=== PATIENT | male | born 1975 | race African-American/Black ===

== ENCOUNTER 2022-11-27 01:36 | Emergency (ER) | payer OTHER ==
[2022-11-27] MEDS ORDERED: MAGNESIUM SULFATE 1 gm IVPB 1 GM/100 ML BAG IV ONE (02:05)
[2022-11-27] MEDS ORDERED: NA CHLORIDE 0.9% 1,000 ML ONE (02:05)
[2022-11-27 02:28] LABS: Absolute Lymphocytes (CBC) 1.1 K/uL (0.7-4.9); Hematocrit 37.6 % (39.6-49.0); MCV 81.7 fL (80-100)
[2022-11-27 02:45] LABS: ALT/SGPT 32 U/L (16-61); AST/SGOT 21 U/L (15-37); Albumin 3.3 g/dL (3.4-5.0); Alkaline Phosphatase 72 U/L (45-117); BUN Blood Urea Nitrogen 21 mg/dL (7-18); Bicarbonate 31 mEq/L (21-32); Bilirubin Total 0.4 mg/dL (0.2-1.0); Creatine Phosphokinase 197 U/L (39-308); Glomerular Filtration Rate 53 ml/min (=/>90); Glucose Level 301 mg/dL (74-106); Lipase 116 U/L (13-75); Potassium 3.7 mEq/L (3.5-5.1); Protein, Total 6.6 g/dL (6.4-8.2); Sodium Level 138 mEq/L (136-145)
[2022-11-27 03:26] LABS: Bilirubin Direct < 0.1 mg/dL (0-0.2)
[2022-11-27 03:40] LABS: Specific Gravity 1.024 (1.005-1.030); Urine Bacteria None Seen /HPF (<20); Urine Bilirubin NEGATIVE (Negative); Urine Blood Negative (Negative); Urine Clarity Clear (Clear); Urine Color Colorless (Yellow); Urine Glucose 4+ (Over) (Negative); Urine Protein NEGATIVE (Negative); Urine RBC None Seen /HPF (None Seen); Urine Urobilinogen Normal (Normal); Urine pH 5.5 (5.0-7.0)
--- NOTE | 2022-11-27 08:45 | ER ---
Nurse's Notes [facility] Name: Jeremiah Lewis Age: 47 yrs Sex: Male : 1975 Arrival Date: 11/27/2022 Time: 01:41 Bed 5 Private MD: Diagnosis: Hyperglycemia, unspecified;Dehydration Presentation: 11/27 01:42 Chief complaint: EMS states: EMS was called for a pt who was dizzy and having syncopal jb4 episodes. Upon arrival he was orthostatic positive. He did vomit once, was given 4mg of zofran, and started a 1L bolus of NS via 18g to the RAC. Coronavirus screen: At this time, the client does not indicate any symptoms associated with coronavirus-19. Ebola Screen: No symptoms or risks identified at this time. Initial Sepsis Screen: Does the patient meet any 2 criteria? No. Patient's initial sepsis screen is negative. Does the patient have a suspected source of infection? No. Patient's initial sepsis screen is negative. Risk Assessment: Do you want to hurt yourself or someone else? Patient reports no desire to harm self or others. Onset of symptoms was November 27, 2022. Transition of care: patient was not received from another setting of care. 01:42 Method Of Arrival: EMS: [facility] jb4 01:42 Acuity: JOSE 3 jb4 Historical: - Allergies: 01:47 No Known Allergies; jb4 - Home Meds: 01:47 rosuvastatin oral [Active]; Metformin Oral [Active]; Novolog Sub-Q [Active]; jb4 - PMHx: 01:49 DM type 2; jb4 - Immunization history:: Adult Immunizations up to date. - Social history:: Smoking status: Patient reports the use of cigarette tobacco products, smokes one-half pack cigarettes per day, Patient uses alcohol. - Family history:: not pertinent. - Hospitalizations: : No recent hospitalization is reported. Screenin:08 [facility] ED Fall Risk Assessment (Adult) History of falling in the last 3 months, jb4 including since admission Yes- single mechanical fall (1 pt) Confusion or Disorientation No (0 pts) Score/Fall Risk Level 0 - 2 = Low Risk Oriented to surroundings, Maintained a safe environment. Abuse screen: Denies threats or abuse. Nutritional screening: No deficits noted. Tuberculosis screening: No symptoms or risk factors identified. Assessment: 02:08 General: Appears in no apparent distress. comfortable, Behavior is calm, cooperative, jb4 appropriate for age. Pain: Denies pain. Neuro: Level of Consciousness is awake, alert, obeys commands, Oriented to person, place, time, situation. Cardiovascular: Patient's skin is warm and dry. Respiratory: Airway is patent Respiratory effort is even, unlabored, Respiratory pattern is regular, symmetrical. GI: No signs and/or symptoms were reported involving the gastrointestinal system. : No signs and/or symptoms were reported regarding the genitourinary system. EENT: No signs and/or symptoms were reported regarding the EENT system. Derm: Skin is intact, Skin is pink, warm \T\ dry. Musculoskeletal: Circulation, motion, and sensation intact. Range of motion: intact in all extremities. 02:58 Reassessment: Patient and/or family updated on plan of care and expected duration. Pain jb4 level reassessed. Patient is alert, oriented x 3, equal unlabored respirations, skin warm/dry/pink. Patient states feeling better. Patient states symptoms have improved. Vital Signs: 01:42 BP 124 / 71; Pulse 82; Resp 16; Temp 97.7(TE); Pulse Ox 98% on R/A; Weight 82.55 kg jb4 (R); Height 6 ft. 0 in. ; Pain 0/10; 02:15 BP 119 / 81; Pulse 84; Resp 17; Pulse Ox 100% ; jb4 02:45 BP 122 / 77; Pulse 80; Resp 19; Pulse Ox 100% on R/A; jb4 01:42 Body Mass Index 24.68 (82.55 kg, 182.88 cm) jb4 01:42 Pain Scale: Adult jb4 ED Course: 01:41 Patient arrived in ED. jb4 01:41 Twan Perez MD is Attending Physician. rn 01:47 Triage completed. jb4 01:48 Arm band placed on right wrist. jb4 01:57 Subhash Greene, JEAN CLAUDE is Primary Nurse. jb4 02:09 Maintain EMS IV. Dressing intact. Good blood return noted. Site clean \T\ dry. Gauge \T\ heidi 4 site: 18g RAC. 04:10 No provider procedures requiring assistance completed. IV discontinued, intact, vc1 bleeding controlled, No redness/swelling at site. Pressure dressing applied. Administered Medications: 02:07 Drug: NS 0.9% IV 1000 ml Route: IV; Rate: 1000 ml; Site: right antecubital; jb4 02:07 Drug: Magnesium Sulfate IVPB 1 grams Route: IVPB; Infused Over: 1 hrs; Site: right jb4 antecubital; Medication: 04:12 VIS not applicable for this client. vc1 Outcome: 03:55 Discharge ordered by . rn 04:12 Discharged to home ambulatory. vc1 04:12 Condition: good 04:12 Discharge instructions given to patient, Instructed on discharge instructions, follow up and referral plans. medication usage, Demonstrated understanding of instructions, follow-up care. 04:12 Patient left the ED. vc1 Signatures: Twan Perez MD MD rn Bryson, James, RN RN jb4 Christiane Whaley RN RN vc1 Corrections: (The following items were deleted from the chart) 01:50 01:42 BP 124 / 71; Pulse 98bpm; Resp 16bpm; Pulse Ox 82% RA; Temp 97.7F Temporal; 82.55 jb4 kg Reported; Height 6 ft. 0 in.; BMI: 24.6; Pain 0/10, Adult; jb4
--- NOTE | 2022-11-27 08:45 | EDPHYS ---
Physician Documentation [facility] Name: Jeremiah Lewis Age: 47 yrs Sex: Male : 1975 Arrival Date: 11/27/2022 Time: 01:41 Bed 5 Private MD: ED Physician Twan Perez HPI: 11/27 01:48 This 47 yrs old Male presents to ER via EMS with complaints of dizziness, syncope. rn 01:48 The patient presents with dizziness, feeling faint, generalized weakness, rn lightheadedness. Onset: The symptoms/episode began/occurred last night. Modifying factors: The symptoms are alleviated by lying down, the symptoms are aggravated by movement of head, standing up, changing position. Severity of symptoms: At their worst the symptoms were moderate in the emergency department the symptoms have improved. The patient has not experienced similar symptoms in the past. The patient has not recently seen a physician. Pt reports feeling dizzy, fell to ground, significant other reports syncopal episode. No injuries from fall. NO chest pain/sob. No headache. Reports hasn't been taking his diabetic medications lately and glucose in 300s. . Denies sob. . Historical: - Allergies: 01:47 No Known Allergies; jb4 - Home Meds: 01:47 rosuvastatin oral [Active]; Metformin Oral [Active]; Novolog Sub-Q [Active]; jb4 - PMHx: 01:49 DM type 2; jb4 - Immunization history:: Adult Immunizations up to date. - Social history:: Smoking status: Patient reports the use of cigarette tobacco products, smokes one-half pack cigarettes per day, Patient uses alcohol. - Family history:: not pertinent. - Hospitalizations: : No recent hospitalization is reported. ROS: 01:48 Constitutional: Negative for fever, chills, and weight loss, Eyes: Negative for injury, rn pain, redness, and discharge, Neck: Negative for injury, pain, and swelling, Cardiovascular: Negative for chest pain, palpitations, and edema, Respiratory: Negative for shortness of breath, cough, wheezing, and pleuritic chest pain, Abdomen/GI: Negative for abdominal pain, nausea, vomiting, diarrhea, and constipation, : Negative for injury, bleeding, discharge, and swelling, MS/Extremity: Negative for injury and deformity, + muscle cramps in legs Skin: Negative for injury, rash, and discoloration, Neuro: + generalized weakness Exam: 01:48 Constitutional: This is a well developed, well nourished patient who is awake, alert, rn and in no acute distress. Smiling and joking Head/Face: Normocephalic, atraumatic. Eyes: Pupils equal round and reactive to light, extra-ocular motions intact. ENT: dry MM Cardiovascular: Regular rate and rhythm. No pulse deficits. Respiratory: No increased work of breathing, no retractions or nasal flaring. Abdomen/GI: Soft, non-tender Skin: Warm, dry MS/ Extremity: Pulses equal, no cyanosis. Neurovascular intact. Full, normal range of motion. Equal circumference. Neuro: Awake and alert, GCS 15, oriented to person, place, time, and situation. Cranial nerves II-XII grossly intact. Motor strength 5/5 in all extremities. Sensory grossly intact. Cerebellar exam normal. 01:55 ECG was reviewed by the Attending Physician. rn Vital Signs: 01:42 BP 124 / 71; Pulse 82; Resp 16; Temp 97.7(TE); Pulse Ox 98% on R/A; Weight 82.55 kg jb4 (R); Height 6 ft. 0 in. ; Pain 0/10; 02:15 BP 119 / 81; Pulse 84; Resp 17; Pulse Ox 100% ; jb4 02:45 BP 122 / 77; Pulse 80; Resp 19; Pulse Ox 100% on R/A; jb4 01:42 Body Mass Index 24.68 (82.55 kg, 182.88 cm) jb4 01:42 Pain Scale: Adult jb4 MDM: 01:41 Patient medically screened. rn 03:53 Differential diagnosis: cardiac arrhythmia, generalized weakness, hyperventilation, rn hypovolemia, idiopathic dizziness, vertigo, hyperglycemia, dehydration. Data reviewed: vital signs, nurses notes, lab test result(s), EKG, and as a result, I will discharge patient. Care significantly affected by the following chronic conditions: Diabetes. Counseling: I had a detailed discussion with the patient and/or guardian regarding: the historical points, exam findings, and any diagnostic results supporting the discharge/admit diagnosis, lab results, the need for outpatient follow up, to return to the emergency department if symptoms worsen or persist or if there are any questions or concerns that arise at home. Response to treatment: the patient's symptoms have markedly improved after treatment, the patient's symptoms have resolved after treatment, the patient's condition has returned to base line, the patient is now symptom free, patient is well hydrated. and as a result, I will discharge patient. Special discussion: I discussed with the patient/guardian in detail that at this point there is no indication for admission to the hospital. It is understood, however, that if the symptoms persist or worsen the patient needs to return immediately for re-evaluation. Based on the history and exam findings, there is no indication for further emergent testing or inpatient evaluation. I discussed with the patient/guardian the need to see the primary care provider for further evaluation of the symptoms. ED course: Pt feels much better, able to get up without dizziness or feeling lightheaded. Ready to go home. No acute findings in blood to necessitate admission/observation. Will get back on his diabetes medication and stay hydrated. . 11/27 01:43 Order name: IV Start; Complete Time: :57 rn 11/27 01:43 Order name: EKG - Nurse/Tech; Complete Time: 01:54 rn 11/27 01:43 Order name: Glucose Level; Complete Time: 02:07 rn 11/27 01:43 Order name: Cardiac monitoring; Complete Time: :57 rn EC:55 Rate is 80 beats/min. Rhythm is regular. QRS [place] is Normal. [place] interval is normal. QRS rn interval is normal. QT interval is normal. No Q waves. T waves are Normal. No ST changes noted. Clinical impression: Normal ECG. Interpreted by me. Reviewed by me. Administered Medications: 02:07 Drug: NS 0.9% IV 1000 ml Route: IV; Rate: 1000 ml; Site: right antecubital; jb4 02:07 Drug: Magnesium Sulfate IVPB 1 grams Route: IVPB; Infused Over: 1 hrs; Site: right jb4 antecubital; Disposition Summary: 11/27/22 03:55 Discharge Ordered Location: Home rn Problem: an ongoing problem rn Symptoms: have improved rn Condition: Stable rn Diagnosis - Hyperglycemia, unspecified rn - Dehydration rn Followup: rn - With: Private Physician - When: As needed - Reason: Recheck today's complaints, Re-evaluation by your physician Discharge Instructions: - Discharge Summary Sheet rn - Dehydration, Adult rn - Hyperglycemia rn - Blood Glucose Monitoring, Adult rn Forms: - Medication Reconciliation Form rn - Thank You Letter rn - Antibiotic furnace mechanic - Prescription Opioid Use rn Signatures: Twan Perez MD MD rn Bryson, James, RN RN jb4
--- NOTE | 2022-11-27 12:13 | EKG ---
Test Date: 2022-11-27 Test Time: 01:52:01 Private Duty Rn: HERNANDO MEASUREMENT RESULTS: Intervals: Rate: 80 MO: 184 QRSD: 82 QT: 370 QTc: 426 [place]: P: 62 MO: 184 QRS: 70 T: 44 INTERPRETIVE STATEMENTS: Normal sinus rhythm No previous ECG available for comparison Electronically Signed On 11-27-22 12:12:39 CDT by Ron Johnson
[2022-11-27 13:29] VITALS: TEMP 97.7
[2022-11-27 13:30] VITALS: O2SAT 100
[2022-11-27 13:32] VITALS: BP 122/77
== END 2022-11-27 04:12 | disposition home or self-care (01) ==
LOC: ER 01:36
DX: E86.0 Dehydration (principal); E11.65 Type 2 diabetes mellitus with hyperglycemia; F17.210 Nicotine dependence, cigarettes, uncomplicated
CPT/HCPCS: 93005; 85025; 81001; 80048; 36415; 82550; 82947; 80076; 84484; 83690; J3475; J7030